=== PATIENT | female | born 1975 | race African-American/Black ===

== ENCOUNTER 2016-05-28 14:43 | Emergency (ER) | payer BC ==
[2016-05-28 14:45] VITALS: BP 137/71
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
[2016-05-28] MEDS ORDERED: HYDROCODONE/APAP 5/325MG TABLET. PO ONE (15:30)
[2016-05-28 16:08] LABS: NEG OBC UR NEG; POS OBC UR POS
--- NOTE | 2016-05-28 16:15 | RAD ---
EXAM: Bilateral knees, 3 views. HISTORY: Pain. COMPARISON: None. FINDINGS: Frontal, lateral and oblique views of both knees are obtained. There is no fracture, dislocation or subluxation. There is no effusion. IMPRESSION: No acute osseous finding.
--- NOTE | 2016-05-28 16:42 | RAD ---
EXAM: Cervical spine CT without contrast. HISTORY: Pain. TECHNIQUE: Computed tomographic images of the spine were obtained without contrast. One or more of the following individualized dose reduction techniques were utilized for this examination: 1. Automated exposure control. 2. Adjustment of the mA and/or kV according to patient size. 3. Use of iterative reconstruction technique. COMPARISON: None. FINDINGS: There is cervical kyphosis centered at C5-C6. There is no significant listhesis. The vertebral bodies are normal in height and the disc spaces are preserved. No displaced fracture is seen. There is a tiny round lucent lesion within C5, likely a tiny hemangioma. There is no suspicious osseous lesion. The skull base and posterior fossa are unremarkable. 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 There is mild endplate remodeling and there are mild disc bulges at several levels. There is no significant foraminal or central canal stenosis. There is nonspecific groundglass opacity within the right upper lobe measuring approximately 1.3 cm, possibly post inflammatory, post infectious or due to atelectasis. IMPRESSION: 1. No evidence of acute thoracic spine trauma or significant foraminal or central canal stenosis. 2. Cervical kyphosis. 3. Small nonspecific groundglass opacity within the right upper lobe, likely of no clinical significance.
[2016-05-28] MEDS ORDERED: NAPR375T3 PO (16:56)
== END 2016-05-28 17:10 | disposition home or self-care (01) ==
LOC: ER 14:43
DX: S80.02XA Contusion of left knee, initial encounter (principal); S80.01XA Contusion of right knee, initial encounter; M54.2 Cervicalgia; Y08.89XA Assault by other specified means, initial encounter; Y93.89 Activity, other specified; Y92.89 Other specified places as the place of occurrence of the external cause; Y99.8 Other external cause status
CPT/HCPCS: 72125; 73562; 81025; 99285-25